=== PATIENT | female | born 1955 | race Caucasian/White ===

== ENCOUNTER 2020-08-11 19:04 | Inpatient (IN) ==
[2020-08-11 20:39] LABS: Adenovirus Not Detected (Not Detect); Bordetella Pertussis Not Detected (Not Detect); Chlamydophila pneumoniae Not Detected (Not Detect); Coronavirus 229E Not Detected (Not Detect); Coronavirus HKU1 Not Detected (Not Detect); Coronavirus NL63 Not Detected (Not Detect); Coronavirus OC43 Not Detected (Not Detect); Human Metapneumovirus Not Detected (Not Detect); Human Rhinovirus/Enterovirus Not Detected (Not Detect); Influenza A Subtype 2009 H1 Not Detected (Not Detect); Influenza B Not Detected (Not Detect); Mycoplasma pneumoniae Not Detected (Not Detect); Parainfluenza Virus 1 Not Detected (Not Detect); Parainfluenza Virus 2 Not Detected (Not Detect); Parainfluenza Virus 3 Not Detected (Not Detect); Parainfluenza Virus 4 Not Detected (Not Detect); Respiratory Syncytial Virus Not Detected (Not Detect); SARS-CoV-2 Not Detected (Not Detect)
[2020-08-11 21:05] LABS: INR 1.1; Prothrombin Time 12.7 Seconds (9.4-12.1)
[2020-08-11 21:07] LABS: Activated Partial Thrombo Time 31.4 Seconds (26.0-36.0)
[2020-08-11 21:13] LABS: Basophils % 0.4 %; Eosinophils # 0.1 K/mcL (0.0-0.6); Eosinophils % 0.7 %; Hematocrit 40.7 % (35.3-44.9); Hemoglobin 12.5 g/dL (11.5-15.4); Immature Granulocytes % 0.4 % (0-4); Lymphocytes # 2.8 K/mcL (0.6-4.6); Lymphocytes % 24.3 %; Mean Corpuscular HGB Conc 30.7 g/dL (31.6-35.5); Mean Corpuscular Hemoglobin 25.5 pg (28.0-33.3); Mean Corpuscular Volume 83.1 fL (83.0-100.0); Mean Platelet Volume 8.8 fL (9.4-12.4); Monocytes # 0.5 K/mcL (0.0-1.3); Monocytes % 4.6 %; Platelet Count 495 K/mcL (140-400); Red Cell Distribution Width 15.8 % (11.5-14.5); Segmented Neutrophils % 69.6 %; White Blood Count 11.4 K/mcL (4.3-11.1)
[2020-08-11 21:24] LABS: Alanine Aminotransferase 10 Units/L (7-52); Albumin 3.7 g/dL (3.5-5.7); Albumin/Globulin Ratio 0.7 (1.1-2.2); Alkaline Phosphatase 72 Units/L (34-104); Aspartate Amino Transferase 14 Units/L (13-39); BUN/Creatinine Ratio 25 (6-26); Bilirubin,Direct 0.1 mg/dL (0.0-0.2); Bilirubin,Indirect 0.3 mg/dL (0.0-1.0); Bilirubin,Total 0.4 mg/dL (0.3-1.0); Blood Urea Nitrogen 20 mg/dL (8-23); Calcium 9.9 mg/dL (8.6-10.3); Carbon Dioxide 27 mEq/L (23-29); Chloride 96 mEq/L (98-107); Globulin 5.6 g/dL (2.4-3.5); Glucose 94 mg/dL (70-105); Osmolality,Calculated 276 (280-300); Potassium 4.8 mEq/L (3.5-5.1); Sodium 132 mEq/L (136-145); Total Protein 9.3 g/dL (6.4-8.9); Troponin I < 0.03 ng/mL (< 0.04); eGFR For African Americans > 60 (> 60); eGFR For Non-African Americans > 60 (> 60)
[2020-08-11] MEDS ORDERED: Isovue-370 500 ML BOTTLE IVP ONE (21:38)
[2020-08-11] MEDS ORDERED: Acetaminophen 325 MG TABLET PO ONE (23:21)
[2020-08-12] MEDS ORDERED: Ondansetron 4 MG/2 ML VIAL IVP PRN (01:34)
[2020-08-12] MEDS ORDERED: Naloxone 0.4 MG/ML INJ IVP PRN (01:34)
[2020-08-12] MEDS: Ringers Solution, Lactated 1,000 ML IVC SCH ×2 (05:31→23:46)
[2020-08-12 05:40] LABS: INR 1.1; Prothrombin Time 12.9 Seconds (9.4-12.1)
[2020-08-12 05:42] LABS: Basophils # 0.1 K/mcL (0.0-0.2); Basophils % 0.5 %; Eosinophils # 0.1 K/mcL (0.0-0.6); Eosinophils % 1.2 %; Hematocrit 38.2 % (35.3-44.9); Hemoglobin 11.9 g/dL (11.5-15.4); Immature Granulocytes % 0.6 % (0-4); Lymphocytes # 2.4 K/mcL (0.6-4.6); Lymphocytes % 23.8 %; Mean Corpuscular HGB Conc 31.2 g/dL (31.6-35.5); Mean Corpuscular Hemoglobin 25.9 pg (28.0-33.3); Mean Platelet Volume 9.1 fL (9.4-12.4); Monocytes # 0.6 K/mcL (0.0-1.3); Monocytes % 6.3 %; Neutrophils # 6.8 K/mcL (1.6-8.9); Platelet Count 465 K/mcL (140-400); Red Cell Distribution Width 15.8 % (11.5-14.5); Segmented Neutrophils % 67.6 %; White Blood Count 10.1 K/mcL (4.3-11.1)
[2020-08-12 05:54] LABS: Alanine Aminotransferase 8 Units/L (7-52); Albumin 3.4 g/dL (3.5-5.7); Albumin/Globulin Ratio 0.6 (1.1-2.2); Alkaline Phosphatase 66 Units/L (34-104); Aspartate Amino Transferase 12 Units/L (13-39); BUN/Creatinine Ratio 23 (6-26); Bilirubin,Total 0.3 mg/dL (0.3-1.0); Blood Urea Nitrogen 21 mg/dL (8-23); Calcium 9.5 mg/dL (8.6-10.3); Carbon Dioxide 27 mEq/L (23-29); Chloride 94 mEq/L (98-107); Chol/HDL Ratio 3.7 (0-4.9); Cholesterol 158 mg/dL (< 200); Globulin 5.5 g/dL (2.4-3.5); Glucose 105 mg/dL (70-105); HDL Cholesterol 43 mg/dL (40-59); LDL Cholesterol,Calculated 86 mg/dL (< 100); Magnesium 2.1 mg/dL (1.6-2.6); Osmolality,Calculated 271 (280-300); Potassium 3.8 mEq/L (3.5-5.1); Sodium 129 mEq/L (136-145); Total Protein 8.9 g/dL (6.4-8.9); Triglycerides 143 mg/dL (< 150); eGFR For African Americans > 60 (> 60); eGFR For Non-African Americans > 60 (> 60)
[2020-08-12] MEDS ORDERED: Ipratropium/Albuterol Neb 3 ML IH PRN (06:50)
[2020-08-12] MEDS: Ipratropium/Albuterol Neb 3 ML IH SCH ×5 (07:37→23:28)
[2020-08-12] MEDS: lisinopriL 20 MG TABLET PO SCH (08:21)
[2020-08-12] MEDS ORDERED: 0.9 % Sodium Chloride 1,000 ML IVC SCH (10:45)
[2020-08-12] MEDS ORDERED: Tuberculin Skin Test (PPD) 5 UNIT/0.1 ML VIAL ID ONE (12:46)
[2020-08-12] MEDS: Acetaminophen 325 MG TABLET PO PRN ×2 (14:39→20:28)
[2020-08-12] MEDS: *HR* Heparin 5,000 UNIT/ML VIAL SQ SCH (17:43)
[2020-08-12] MEDS ORDERED: Ibuprofen 800 MG TABLET PO ONE (21:59)
[2020-08-12] MEDS: Budesonide/Formoterol 160/4.5 1 PUFF INH IH SCH (23:33)
[2020-08-12] MEDS ORDERED: Ketorolac 30 MG/ML VIAL IVP ONE (23:34)
[2020-08-13] MEDS ORDERED: Aspirin Enteric Coated 325 MG Tablet PO SCH (00:51)
[2020-08-13 01:49] LABS: Acinetobacter baumannii by PCR Not Detected (Not Detect); Candida albicans by PCR Not Detected (Not Detect); Candida glabrata by PCR Not Detected (Not Detect); Candida krusei by PCR Not Detected (Not Detect); Candida parapsilosis by PCR Not Detected (Not Detect); Candida tropicalis by PCR Not Detected (Not Detect); Enterobacter cloacae Cmplx PCR Not Detected (Not Detect); Enterobacteriaceae by PCR Not Detected (Not Detect); Enterococcus by PCR Not Detected (Not Detect); Escherichia coli by PCR Not Detected (Not Detect); Klebsiella oxytoca by PCR Not Detected (Not Detect); Klebsiella pneumoniae by PCR Not Detected (Not Detect); Proteus by PCR Not Detected (Not Detect); Pseudomonas aeruginosa by PCR Not Detected (Not Detect); Serratia marcescens by PCR Not Detected (Not Detect); Staphylococcus aureus by PCR Not Detected (Not Detect); Staphylococcus by PCR DETECTED (Not Detect); Streptococcus agalactiae(B)PCR Not Detected (Not Detect); Streptococcus by PCR Not Detected (Not Detect); Streptococcus pneumoniae PCR Not Detected (Not Detect); Streptococcus pyogenes (A) PCR Not Detected (Not Detect); mecA Methicillin-Resist Gene DETECTED (Not Detect)
[2020-08-13] MEDS: Ipratropium/Albuterol Neb 3 ML IH SCH ×6 (03:26→23:43)
[2020-08-13 06:01] LABS: Hematocrit 35.3 % (35.3-44.9); Hemoglobin 10.8 g/dL (11.5-15.4); Mean Corpuscular HGB Conc 30.6 g/dL (31.6-35.5); Mean Corpuscular Hemoglobin 25.5 pg (28.0-33.3); Mean Corpuscular Volume 83.5 fL (83.0-100.0); Platelet Count 369 K/mcL (140-400); Red Blood Count 4.23 M/mcL (3.82-4.97); Red Cell Distribution Width 15.9 % (11.5-14.5); White Blood Count 8.1 K/mcL (4.3-11.1)
[2020-08-13] MEDS: *HR* Heparin 5,000 UNIT/ML VIAL SQ SCH ×2 (06:02→12:52)
[2020-08-13 06:24] LABS: BUN/Creatinine Ratio 31 (6-26); Blood Urea Nitrogen 26 mg/dL (8-23); Calcium 9.4 mg/dL (8.6-10.3); Carbon Dioxide 26 mEq/L (23-29); Chloride 97 mEq/L (98-107); Glucose 107 mg/dL (70-105); Osmolality,Calculated 279 (280-300); Potassium 3.8 mEq/L (3.5-5.1); Sodium 132 mEq/L (136-145); eGFR For African Americans > 60 (> 60); eGFR For Non-African Americans > 60 (> 60)
[2020-08-13] MEDS ORDERED: Vancomycin 500 MG in 0.9 % Sodium Chloride 250 ML IVPB SCH (08:00)
[2020-08-13] MEDS: Aspirin Enteric Coated 81 MG Tablet PO SCH ×2 (08:58→12:51)
[2020-08-13] MEDS: lisinopriL 20 MG TABLET PO SCH (08:58)
[2020-08-13] MEDS: Vancomycin 500 MG in 0.9 % Sodium Chloride Mini Bag 100 ML IVPB SCH (08:58)
[2020-08-13] MEDS: Acetaminophen 325 MG TABLET PO PRN (09:20)
[2020-08-13] MEDS: amLODIPine 5 MG TABLET PO SCH (09:47)
[2020-08-13] MEDS: Budesonide/Formoterol 160/4.5 1 PUFF INH IH SCH ×2 (09:50→19:45)
[2020-08-13] MEDS: Gabapentin 300 MG CAPSULE PO SCH ×2 (12:37→20:26)
[2020-08-14] MEDS: Ipratropium/Albuterol Neb 3 ML IH SCH ×6 (03:23→23:38)
[2020-08-14] MEDS ORDERED: Lidocaine -MPF 4% 5 ML AMPUL ONE (07:33)
[2020-08-14] MEDS ORDERED: Lidocaine -MPF 2% 2 ML VIAL ONE (07:41)
[2020-08-14] MEDS ORDERED: *HR* Rocuronium Bromide 50 MG/5 ML VIAL ONE (07:41)
[2020-08-14] MEDS ORDERED: *HR* Succinylcholine 200 MG/10 ML VIAL IVP ONE (07:41)
[2020-08-14] MEDS ORDERED: Ondansetron 4 MG/2 ML VIAL ONE (07:41)
[2020-08-14] MEDS ORDERED: Dexamethasone 4 MG/ML VIAL ONE (07:41)
[2020-08-14] MEDS ORDERED: *HR* FentaNYL (PF) 100 MCG/2 ML VIAL ONE (07:41)
[2020-08-14] MEDS: Budesonide/Formoterol 160/4.5 1 PUFF INH IH SCH ×2 (07:55→19:45)
[2020-08-14] MEDS ORDERED: EPINEPHrine 1 MG/ML VIAL INTRATRACH ONE (08:40)
[2020-08-14] MEDS ORDERED: *HR* PHENYLEPHRINE 1,000 MCG/10 ML SYRINGE IVP ONE (08:53)
[2020-08-14] MEDS ORDERED: Albuterol 2.5 MG/3 ML NEBULIZER ONE (08:58)
[2020-08-14] MEDS ORDERED: *HR* EPINEPHrine 1 MG/10 ML SYRINGE ONE (08:59)
[2020-08-14] MEDS ORDERED: Albuterol 2.5 MG/3 ML NEBULIZER IH ONE (09:02)
[2020-08-14] MEDS: Gabapentin 300 MG CAPSULE PO SCH ×2 (09:42→19:55)
[2020-08-14] MEDS: amLODIPine 5 MG TABLET PO SCH (09:43)
[2020-08-14] MEDS: lisinopriL 20 MG TABLET PO SCH (09:43)
[2020-08-14] MEDS: Vancomycin 500 MG in 0.9 % Sodium Chloride Mini Bag 100 ML IVPB SCH (09:57)
[2020-08-14 11:07] LABS: BUN/Creatinine Ratio 23 (6-26); Blood Urea Nitrogen 20 mg/dL (8-23); Calcium 9.1 mg/dL (8.6-10.3); Carbon Dioxide 23 mEq/L (23-29); Chloride 101 mEq/L (98-107); Glucose 106 mg/dL (70-105); Osmolality,Calculated 279 (280-300); Potassium 4.6 mEq/L (3.5-5.1); Sodium 133 mEq/L (136-145); eGFR For African Americans > 60 (> 60); eGFR For Non-African Americans > 60 (> 60)
[2020-08-14] MEDS: Acetaminophen 325 MG TABLET PO PRN (13:48)
[2020-08-14] MEDS: Mag Hydrox/Al Hydrox/Simeth 30 ML UDC PO PRN (16:44)
[2020-08-14] MEDS: *HR* Heparin 5,000 UNIT/ML VIAL SQ SCH (16:44)
[2020-08-14 21:44] LABS: Appearance of Body Fluid Clear (Clear); Volume of Body Fluid 19 mL
[2020-08-15 01:22] LABS: Hematocrit 33.1 % (35.3-44.9); Hemoglobin 10.3 g/dL (11.5-15.4); Mean Corpuscular HGB Conc 31.1 g/dL (31.6-35.5); Mean Corpuscular Hemoglobin 26.4 pg (28.0-33.3); Mean Corpuscular Volume 84.9 fL (83.0-100.0); Mean Platelet Volume 9.3 fL (9.4-12.4); Platelet Count 424 K/mcL (140-400); Red Cell Distribution Width 16.2 % (11.5-14.5)
[2020-08-15 01:32] LABS: BUN/Creatinine Ratio 32 (6-26); Blood Urea Nitrogen 27 mg/dL (8-23); Calcium 9.2 mg/dL (8.6-10.3); Carbon Dioxide 21 mEq/L (23-29); Chloride 97 mEq/L (98-107); Glucose 174 mg/dL (70-105); Osmolality,Calculated 275 (280-300); Potassium 4.6 mEq/L (3.5-5.1); Sodium 128 mEq/L (136-145); eGFR For African Americans > 60 (> 60); eGFR For Non-African Americans > 60 (> 60)
[2020-08-15] MEDS: Acetaminophen 325 MG TABLET PO PRN (03:20)
[2020-08-15] MEDS: *HR* Heparin 5,000 UNIT/ML VIAL SQ SCH (03:21)
[2020-08-15] MEDS: Ipratropium/Albuterol Neb 3 ML IH SCH ×3 (03:34→11:42)
[2020-08-15] MEDS: Aspirin Enteric Coated 81 MG Tablet PO SCH (07:25)
[2020-08-15] MEDS: Gabapentin 300 MG CAPSULE PO SCH (07:25)
[2020-08-15] MEDS: amLODIPine 5 MG TABLET PO SCH (07:25)
[2020-08-15] MEDS: lisinopriL 20 MG TABLET PO SCH (07:25)
[2020-08-15] MEDS: Budesonide/Formoterol 160/4.5 1 PUFF INH IH SCH (08:05)
[2020-08-15] MEDS: Vancomycin 500 MG in 0.9 % Sodium Chloride Mini Bag 100 ML IVPB SCH (08:32)
[2020-08-15] MEDS: Mag Hydrox/Al Hydrox/Simeth 30 ML UDC PO PRN (10:10)
[2020-08-15 13:00] VITALS: BP 135/80
[2020-08-16 15:45] LABS: QuantiFERON Mitogen minus NIL 1.39 IU/mL
[2020-08-16 16:25] LABS: QuantiFERON NIL 0.03 IU/mL; QuantiFERON-TB Gold In-Tube NEGATIVE (Negative)
== END 2020-08-15 15:11 | disposition home or self-care (01) | DRG 121 ==
LOC: 3BNU 19:04 → EMEROOARM 19:04 → 3BNU 08-12 02:47
PROVIDERS: ADMIT Internal Medicine; ATTEND Internal Medicine

== ENCOUNTER 2022-08-04 12:16 | Inpatient (IN) ==
[2022-08-04] MEDS ORDERED: Naloxone 0.4 MG/ML INJ IVP PRN (15:26)
[2022-08-04] MEDS ORDERED: methylPREDNISolone 125 MG/2 ML VIAL IVP ONE (15:45)
[2022-08-04] MEDS: Nicotine 21 MG PATCH.TD24 TD SCH (16:40)
[2022-08-04] MEDS: *HR* OxyCODONE Immed Rel 5 MG TABLET PO PRN ×2 (16:40→22:57)
[2022-08-04 16:43] LABS: BUN/Creatinine Ratio 13 (6-26); Blood Urea Nitrogen 9 mg/dL (8-23); Calcium 8.8 mg/dL (8.6-10.3); Carbon Dioxide 26 mEq/L (23-29); Chloride 103 mEq/L (98-107); Glucose 129 mg/dL (70-105); Osmolality,Calculated 280 (280-300); Potassium 3.2 mEq/L (3.5-5.1); Sodium 135 mEq/L (136-145)
[2022-08-04 16:44] LABS: Troponin I < 0.03 ng/mL (< 0.04)
[2022-08-04] MEDS: Pantoprazole 40 MG VIAL IVP SCH (16:51)
[2022-08-04] MEDS: Ipratropium/Albuterol Neb 3 ML IH SCH ×2 (18:39→22:47)
[2022-08-04] MEDS: *HR* Heparin 5,000 UNIT/ML VIAL SQ SCH (22:09)
[2022-08-04] MEDS: Budesonide/Formoterol 160/4.5 1 PUFF INH IH SCH (22:47)
[2022-08-05] MEDS ORDERED: hydrOXYzine pamoate 25 MG CAPSULE PO PRN ×2 (02:26→16:59)
[2022-08-05] MEDS: Melatonin 3 MG TABLET PO PRN ×2 (02:36→19:34)
[2022-08-05] MEDS: *HR* Heparin 5,000 UNIT/ML VIAL SQ SCH ×3 (04:58→20:57)
[2022-08-05] MEDS: *HR* OxyCODONE Immed Rel 5 MG TABLET PO PRN ×3 (04:58→19:34)
[2022-08-05] MEDS: Ipratropium/Albuterol Neb 3 ML IH SCH ×4 (05:14→20:49)
[2022-08-05] MEDS: Pantoprazole 40 MG VIAL IVP SCH ×2 (06:00→17:50)
[2022-08-05] MEDS: Budesonide/Formoterol 160/4.5 1 PUFF INH IH SCH ×2 (08:43→20:49)
[2022-08-05] MEDS: Nicotine 21 MG PATCH.TD24 TD SCH (08:53)
[2022-08-05 10:53] LABS: Basophils % 0.1 %; Hematocrit 32.3 % (35.3-44.9); Hemoglobin 10.4 g/dL (11.5-15.4); Immature Granulocytes % 0.2 % (0-4); Lymphocytes # 1.5 K/mcL (0.6-4.6); Lymphocytes % 18.8 %; Mean Corpuscular HGB Conc 32.2 g/dL (31.6-35.5); Mean Corpuscular Volume 83.9 fL (83.0-100.0); Mean Platelet Volume 10.7 fL (9.4-12.4); Monocytes # 0.7 K/mcL (0.0-1.3); Monocytes % 7.9 %; Platelet Count 228 K/mcL (140-400); Red Blood Count 3.85 M/mcL (3.82-4.97); Red Cell Distribution Width 13.7 % (11.5-14.5); White Blood Count 8.2 K/mcL (4.3-11.1)
[2022-08-05 11:11] LABS: Calcium 9.7 mg/dL (8.6-10.3); Magnesium 1.5 mg/dL (1.6-2.6); Potassium 3.1 mEq/L (3.5-5.1)
[2022-08-05] MEDS: cefTRIAXone 1,000 MG in Water for inj. (sterile) 10 ML IVP SCH (11:47)
[2022-08-05] MEDS ORDERED: *HR* OxyCODONE Immed Rel 5 MG TABLET PO PRN (13:20)
[2022-08-05] MEDS ORDERED: cloNIDine HCL 0.1 MG TABLET PO PRN (16:58)
[2022-08-05 20:06] LABS: Amphetamine Screen,Urine Negative ng/mL (Cutoff=1000); Barbiturate Screen,Urine Negative ng/mL (Cutoff=200); Benzodiazepines Screen,Urine Negative ng/mL (Cutoff=200); Cannabinoid Screen,Urine Positive ng/mL (Cutoff = 50); Cocaine Screen,Urine Negative ng/mL (Cutoff= 300); Opiate Screen,Urine Negative ng/mL (Cutoff=300); Phencyclidine Screen,Urine Negative ng/mL (Cutoff=25)
[2022-08-05] MEDS: Acetaminophen 325 MG TABLET PO PRN (23:28)
[2022-08-06] MEDS: Ondansetron 4 MG/2 ML VIAL IVP PRN ×2 (01:42→19:32)
[2022-08-06] MEDS: *HR* OxyCODONE Immed Rel 5 MG TABLET PO PRN ×4 (01:56→21:05)
[2022-08-06] MEDS: *HR* Heparin 5,000 UNIT/ML VIAL SQ SCH ×3 (05:27→21:09)
[2022-08-06] MEDS: Ipratropium/Albuterol Neb 3 ML IH SCH ×4 (06:17→22:31)
[2022-08-06] MEDS: Nicotine 21 MG PATCH.TD24 TD SCH (08:17)
[2022-08-06] MEDS: cefTRIAXone 1,000 MG in Water for inj. (sterile) 10 ML IVP SCH (08:18)
[2022-08-06] MEDS: Pantoprazole 40 MG VIAL IVP SCH ×2 (08:18→17:14)
[2022-08-06] MEDS: Budesonide/Formoterol 160/4.5 1 PUFF INH IH SCH ×2 (09:38→22:31)
[2022-08-06 10:07] LABS: Calcium 9.5 mg/dL (8.6-10.3); Magnesium 1.6 mg/dL (1.6-2.6); Potassium 4.1 mEq/L (3.5-5.1)
[2022-08-06] MEDS: Acetaminophen 325 MG TABLET PO PRN ×2 (11:27→17:40)
[2022-08-06 13:16] LABS: Basophils % 0.3 %; Eosinophils % 0.3 %; Hematocrit 36.7 % (35.3-44.9); Hemoglobin 11.9 g/dL (11.5-15.4); Immature Granulocytes % 0.2 % (0-4); Lymphocytes # 1.8 K/mcL (0.6-4.6); Lymphocytes % 20.1 %; Mean Corpuscular HGB Conc 32.4 g/dL (31.6-35.5); Mean Corpuscular Hemoglobin 27.2 pg (28.0-33.3); Monocytes # 0.7 K/mcL (0.0-1.3); Monocytes % 7.4 %; Neutrophils # 6.5 K/mcL (1.6-8.9); Platelet Count 260 K/mcL (140-400); Red Blood Count 4.37 M/mcL (3.82-4.97); Red Cell Distribution Width 13.7 % (11.5-14.5); Segmented Neutrophils % 71.7 %
[2022-08-06] MEDS: Melatonin 3 MG TABLET PO PRN (21:09)
[2022-08-07] MEDS: Acetaminophen 325 MG TABLET PO PRN ×2 (00:05→08:09)
[2022-08-07] MEDS: *HR* OxyCODONE Immed Rel 5 MG TABLET PO PRN ×2 (03:26→11:56)
[2022-08-07] MEDS: Ondansetron 4 MG/2 ML VIAL IVP PRN (03:37)
[2022-08-07 05:37] LABS: Basophils % 0.5 %; Eosinophils # 0.1 K/mcL (0.0-0.6); Hematocrit 36.6 % (35.3-44.9); Hemoglobin 12.1 g/dL (11.5-15.4); Immature Granulocytes % 0.4 % (0-4); Lymphocytes # 2.1 K/mcL (0.6-4.6); Lymphocytes % 26.9 %; Mean Corpuscular HGB Conc 33.1 g/dL (31.6-35.5); Mean Corpuscular Hemoglobin 27.4 pg (28.0-33.3); Mean Corpuscular Volume 82.8 fL (83.0-100.0); Mean Platelet Volume 10.1 fL (9.4-12.4); Monocytes # 0.8 K/mcL (0.0-1.3); Monocytes % 9.8 %; Neutrophils # 4.8 K/mcL (1.6-8.9); Platelet Count 244 K/mcL (140-400); Red Blood Count 4.42 M/mcL (3.82-4.97); Red Cell Distribution Width 13.7 % (11.5-14.5); Segmented Neutrophils % 61.4 %; White Blood Count 7.9 K/mcL (4.3-11.1)
[2022-08-07 05:42] LABS: Calcium 8.7 mg/dL (8.6-10.3); Magnesium 1.6 mg/dL (1.6-2.6); Potassium 3.4 mEq/L (3.5-5.1)
[2022-08-07] MEDS: Pantoprazole 40 MG VIAL IVP SCH (06:26)
[2022-08-07] MEDS: *HR* Heparin 5,000 UNIT/ML VIAL SQ SCH ×2 (06:29→14:18)
[2022-08-07] MEDS: Nicotine 21 MG PATCH.TD24 TD SCH (08:08)
[2022-08-07] MEDS: cefTRIAXone 1,000 MG in Water for inj. (sterile) 10 ML IVP SCH (08:09)
[2022-08-07] MEDS: Budesonide/Formoterol 160/4.5 1 PUFF INH IH SCH (10:09)
[2022-08-07] MEDS: Ipratropium/Albuterol Neb 3 ML IH SCH ×2 (10:09→15:30)
[2022-08-07 11:34] VITALS: BP 164/103; PULSE 87; TEMP 98.8; O2SAT 99
[2022-08-07] MEDS ORDERED: Flu Vac QV 22-23 (6MOS UP)/PF 0.5 ML SYRINGE IM ONE (13:02)
[2022-08-07] MEDS ORDERED: Ondansetron ODT 4 MG TAB.RAPDIS SL ONE (14:41)
== END 2022-08-07 16:00 | disposition home health service (06) | DRG 552 ==
LOC: 4WAOSI → SUATTDRO 14:50
PROVIDERS: ADMIT Internal Medicine; ATTEND Pharmacist